=== PATIENT | female | born 1965 | race Caucasian/White ===

== ENCOUNTER 2025-05-25 23:38 | Emergency (ER) | payer OTHER ==
[2025-05-26] MEDS ORDERED: ONDANSETRON 4 MG/2 ML VIAL ONE (00:02)
[2025-05-26] MEDS ORDERED: NA CHLORIDE 0.9% 1,000 ML ONE (00:03)
[2025-05-26] MEDS ORDERED: MORPHINE 4 MG/ML SYR ONE ×2 (00:03→00:42)
[2025-05-26 00:23] LABS: Absolute Lymphocytes (CBC) 2.6 K/uL (0.7-4.9); Hematocrit 39.0 % (36.0-45.0); Hemoglobin 13.3 g/dL (12.0-15.0); MCH 30.9 pg (27.0-35.0); MCHC 34.2 g/dL (32.0-36.0); MCV 90.4 fL (80-100); MPV 7.1 fL (7.6-11.3); Nucleated RBC Absolute Count 0.0 (0-0); Nucleated Red Blood Cells % 0.1 % (0-0); RBC Red Blood Cell Count 4.32 M/uL (3.86-4.86); White Blood Count 10.10 thou/uL (4.3-10.9)
[2025-05-26 00:38] LABS: Anion Gap 12.2 mEq/L (5.0-15.0); BUN Blood Urea Nitrogen 18.0 mg/dL (7-18); Glucose Level 109.0 mg/dL (74-106)
[2025-05-26 00:39] LABS: Potassium 4.2 mEq/L (3.5-5.1)
[2025-05-26] MEDS ORDERED: FENTANYL CITR 100 MCG/2 ML ONE ×2 (00:48→03:05)
--- NOTE | 2025-05-26 03:45 | RAD REPORT ---
INDICATION: ABD PAIN COMPARISON: No existing relevant imaging studies are available TECHNIQUE: Enhanced CT of the abdomen and pelvis performed per protocol. Oral contrast was not administered. Mul tiplanar reconstructions were provided. Dose reduction techniques were utilized for this exam including automated exposure control, adjustmen ts to mA and/or kV according to patient's size, and the use of iterative reconstruction techniques. FINDINGS: LOWER CHEST: Bibasilar subsegmental atelectasis. Coronary arterial calcifications. LIVER: Unremarkable. SPLEEN: Unremarkable. PANCREAS: Unremarkable. ADRENALS: Unremarkable. KIDNEYS: Mild asymmetric fullness of the left renal collecting system without obstructing calculus id entified. 3 mm calculus within the lower pole of the right kidney. GALLBLADDER: Surgically absent. VESSELS: Mild aortic atherosclerosis without aneurysmal dilatation. BOWEL: Colonic diverticulosis without evidence of diverticulitis. Bowel otherwise unremarkable. APPENDIX: Normal. FLUID: No free fluid or abnormal fluid collection. ADENOPATHY: No pathologic adenopathy. BLADDER: Unremarkable. PELVIS: Uterus and adnexa are unremarkable. BONES: No acute bony abnormality. Grade 1 degenerative anterolisthesis of L5 on S1. SOFT TISSUES: Postsurgical changes from upper ventral abdominal wall hernia repair with a 5.9 x 1.5 c m fluid collection within the anterior abdominal wall at the site of prior hernia. Prior left mastectomy. Partially visualized right-sided breast implant. IMPRESSION: No acute abdominopelvic findings. 1. Postsurgical changes from upper ventral abdominal wall hernia repair with a 5.9 x 1.5 cm fluid c ollection within the anterior abdominal wall at the site of prior hernia, nonspecific and sterility indeterminate although could represent a postoperative seroma, hematoma or less likely abscess. 2. Mild asymmetric fullness of the left renal collecting system without obstructing calculus identi fied. 3. Nonobstructive right-sided nephrolithiasis. 4. Colonic diverticulosis without evidence of diverticulitis. Electronically signed by: Vinay Dominguez DO 05/26/2025 02:44 AM CDT NR Due to temporary technical issues with the PACS/[employer] reporting system, reports are being audelia d by the in-house radiologist without review as a courtesy to ensure prompt reporting the interpreting radiologist is fully responsible for the content of the report. Transcribed Date/Time: 05/26/2025 3:45 AM
[2025-05-26 05:40] LABS: Urine Microscopic Reflex YN NO UMIC
--- NOTE | 2025-05-26 05:51 | EDPHYS ---
Physician Documentation [facility] Name: Radha Burden Age: 60 yrs Sex: Female : 1965 Arrival Date: 05/25/2025 Time: 23:38 Bed 19 Private MD: ED Physician Isaiah Galindo HPI: 05/26 00:54 This 60 yrs old Female presents to ER via EMS with complaints of Back Pain. kb 00:54 Patient is a 60-year-old female who presents for lower back/pelvis pain that radiates kb down the back of her legs and dysuria that started this morning. States pain is gotten progressively worse so she came into the ER for evaluation. Denies fever, nausea, vomiting, injury or trauma. Patient states she has a prolapsed bladder and uterus and she felt like something popped inside.. Historical: - PMHx: 05/25 23:50 None; br2 - PSHx: 23:52 HERNIA; Cholecystectomy; br2 23:55 MASTECTOMY; br2 - Immunization history:: Adult Immunizations not up to date. - Infectious Disease History:: Denies. - Social history:: Smoking status: Patient reports the use of cigarette tobacco products, smokes one-half pack cigarettes per day, Patient/guardian denies using alcohol, street drugs. ROS: 05/26 00:54 Constitutional: As per HPI kb Exam: 00:54 Constitutional: This is a well developed, well nourished patient who is awake, alert, kb and in no acute distress. Head/Face: Normocephalic, atraumatic. ENT: Moist Mucous membranes Cardiovascular: Regular rate Respiratory: Respirations even and unlabored. No increased work of breathing. Talking in full sentences Abdomen/GI: Soft, non-tender. No distention Skin: Warm, dry with normal turgor. Normal color. Neuro: Awake and alert, GCS 15, oriented to person, place, time, and situation. 00:54 Back: pain, that is moderate, of the sacrum, ROM is painful, CVA tenderness, is absent, 00:54 Musculoskeletal/extremity: Extremities: grossly normal except: noted in the left gluteus umu and right gluteus umu: pain, tenderness, ROM: intact in all extremities, Circulation is intact in all extremities. Sensation intact. Vital Signs: 05/25 23:46 BP 125 / 79; Pulse 114; Resp 22 S; Temp 97.4(O); Pulse Ox 98% on R/A; Weight 77.11 kg; br2 Height 5 ft. 1 in. ; Pain 10; 05/26 00:15 BP 134 / 69; Pulse 62; Resp 18; Pulse Ox 99% on R/A; Pain 10/10; tb4 01:00 BP 129 / 66; Pulse 74; Resp 18; Pulse Ox 99% on R/A; Pain 9/10; tb4 02:04 BP 120 / 62; Pulse 74; Resp 19; Pulse Ox 97% on R/A; tb4 03:00 BP 115 / 65; Pulse 94; Resp 17; Pulse Ox 96% on R/A; Pain 7/10; tb4 04:10 BP 123 / 74; Pulse 77; Resp 20; Pulse Ox 100% on R/A; Pain 7/10; tb4 05:23 BP 119 / 75; Pulse 74; Resp 20; Pulse Ox 97% on R/A; Pain 7/10; tb4 05/25 23:46 Body Mass Index 32.12 (77.11 kg, 154.94 cm) br2 05/25 23:46 Pain Scale: Adult br2 05/26 00:15 Pain Scale: Adult tb4 01:00 Pain Scale: Adult tb4 03:00 Pain Scale: Adult tb4 04:10 Pain Scale: Adult tb4 05:23 Pain Scale: Adult tb4 MDM: 05/25 23:47 Medical Screening Exam initiated kb 05/25 23:53 Order name: CBC with Diff; Complete Time: 00:30 kb 05/25 23:53 Order name: BMP; Complete Time: 00:42 kb 05/25 23:53 Order name: UA Rfx Jarod Cult if indicated; Complete Time: 05:49 kb 05/25 23:53 Order name: CT Abd/Pelvis - IV Contrast Only Administered Medications: 05/26 00:10 Drug: NS 0.9% IV 1000 ml IV at 1000 ml once; to be given as a bolus over 60 minutes kt5 Route: IV; Rate: 1000 ml; Site: right forearm; 01:07 Follow up: Response: No adverse reaction; IV Status: Completed infusion tb4 00:10 Drug: Ondansetron IVP 4 mg IVP once; over 2 minutes Route: IVP; Site: right forearm; kt5 01:07 Follow up: Response: No adverse reaction tb4 00:10 Drug: morphine IVP or IV 4 mg IVP once over 4 mins Route: IVP; Infused Over: 4 mins; kt5 Site: right forearm; 01:08 Follow up: Response: No adverse reaction; Pain is unchanged, physician notified; RASS: tb4 Alert and Calm (0) 00:45 CANCELLED (Patient Refused): morphineor iv 4 mg IVP once over 4 mins kb 00:53 Drug: fentaNYL (PF) IVP 50 mcg IVP once Route: IVP; Site: right forearm; tb4 01:07 Follow up: Response: No adverse reaction; Pain is unchanged, physician notified; RASS: tb4 Alert and Calm (0) 03:48 Drug: fentaNYL (PF) IVP 100 mcg IVP once Route: IVP; Site: right antecubital; tb4 04:37 Follow up: Response: No adverse reaction; Pain is decreased; RASS: Alert and Calm (0); tb4 Patient states her pain remains a 06/16 04:36 Drug: Droperidol IVP 1.25 mg IVP once Route: IVP; Site: right antecubital; tb4 05:29 Follow up: Response: No adverse reaction tb4 Disposition: 05:50 Co-signature as Attending Physician, Isaiah Galindo MD I agree with the assessment sp4 and plan of care. I reviewed the patient's care provided by Advanced Practice Provider \T\ agree w/ the diagnosis \T\ care plan. I personally saw the pt \T\ performed a substantive portion of the visit, incldng all aspects of the (History/Exam/Medical Decision Making). 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, acute on chronic urinary bladder sp4 prolapse, Followup: sp4 - With: Private Physician - When: Today - Reason: Discharge Instructions: - Discharge Summary Sheet sp4 - Pelvic Organ Prolapse sp4 Forms: - Work release form rv1 - Patient Portal Instructions sp4 Prescriptions: - promethazine 25 mg Oral tablet - take 1 tablet ORAL route every 6 hours As needed PRN nausea; 30 tablet; sp4 Refills: 0, Product Selection Permitted Signatures: Dispatcher [employer] EDMS Sita Whitfield, Isaiah Mathew MD MD sp4 Rosa Isela Fong RN RN br2 Pat Hannah RN RN tb4 Trudi Swanson RN RN kt5 Corrections: (The following items were deleted from the chart) 05/25 23:53 23:50 PSHx: None; br2 br2 23:54 23:50 Allergies: No Known Allergies; br2 br2 23:54 23:53 Allergies: MASTECTOMY BILATERAL; br2 br2 05/26 00:45 00:32 morphine IVP or IV 4 mg IVP once over 4 mins ordered. kb kb 00:55 00:54 Patient is a 60-year-old female who presents for lower back/pelvis pain that kb radiates down the back of her legs and dysuria that started this morning. States pain is gotten progressively worse so she came into the ER for evaluation. Denies fever, nausea, vomiting, injury or trauma.. kb
--- NOTE | 2025-05-26 05:51 | ER ---
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 PT br2 STATES SHE HAS HERNIATED DISK, AND DENIES ANY RECENT INJURY. PT ALSO C/O PELVIC PAIN AND PAIN WITH URINATION. PT HAS A PROLAPSED UTERUS AND BLADDER AND HAS A MATERIAL ATTENDANT APPT TOMORROW. Coronavirus screen: Client denies travel out of the [place] in the last 14 days. Ebola Screen: Patient denies exposure to infectious person. Initial Sepsis Screen: Does the patient meet any 2 criteria? RR > 20 per min. HR > 90 bpm. Does the patient have a suspected source of infection? No. Patient's initial sepsis screen is negative. Risk Assessment: Do you want to hurt yourself or someone else? Patient reports no desire to harm self or others. Onset of symptoms was May 24, 2025. 23:46 Method Of Arrival: EMS: [facility] br2 23:46 Acuity: CATHY 3 br2 Triage Assessment: 23:50 General: Appears uncomfortable, Behavior is cooperative, anxious. Pain: Complains of br2 pain in back and pelvis Pain currently is 10 out of 10 on a pain scale. Historical: - PMHx: 23:50 None; br2 - PSHx: 23:52 HERNIA; Cholecystectomy; br2 23:55 MASTECTOMY; br2 - Immunization history:: Adult Immunizations not up to date. - Infectious Disease History:: Denies. - Social history:: Smoking status: Patient reports the use of cigarette tobacco products, smokes one-half pack cigarettes per day, Patient/guardian denies using alcohol, street drugs. Screenin/20 00:15 [facility] ED Fall Risk Assessment (Adult) History of falling in the last 3 months, tb4 including since admission No falls in past 3 months (0 pts) Confusion or Disorientation No (0 pts) Intoxicated or Sedated No (0 pts) Impaired Gait No (0 pts) Mobility Assist Device Used No (0 pt) Altered Elimination No (0 pt) Score/Fall Risk Level 0 - 2 = Low Risk Oriented to surroundings, Maintained a safe environment. Abuse screen: Denies threats or abuse. Denies injuries from another. Nutritional screening: No deficits noted. Tuberculosis screening: No symptoms or risk factors identified. Assessment: 00:04 General: Appears distressed, uncomfortable, ill, Behavior is cooperative, crying, tb4 restless. Pain: Complains of pain in generalized body pain 10/10 Pain does not radiate. Pain currently is 10 out of 10 on a pain scale. Quality of pain is described as sharp, shooting, Pain began gradually, years ago. Is continuous, Alleviated by nothing. Neuro: Level of Consciousness is awake, alert, obeys commands, Oriented to person, place, time, situation, Auditing Control Clerk are weak bilaterally Moves all extremities. Full function Gait is unsteady, Speech is normal, Facial symmetry appears normal. Respiratory: Airway is patent Trachea midline Respiratory effort is even, unlabored, Respiratory pattern is regular, symmetrical. GI: Abdomen is round Bowel sounds present X 4 quads. Reports lower abdominal pain, upper abdominal pain, Pain is 10 out of 10 on a pain scale. : Reports burning with urination, cramping. EENT:. Derm: Skin is intact, is healthy with good turgor, Skin is moist, Skin is normal. Musculoskeletal: Circulation, motion, and sensation intact. Range of motion: intact in all extremities, Reports pain in buttocks and right gluteus umu and left gluteus umu and sacrum and pelvis and back and generalized pain 10/10. 05:29 Reassessment: Patient walked to restroom with daughter, no s/s of distress noted. tb4 Vital Signs: 05/25 23:46 BP 125 / 79; Pulse 114; Resp 22 S; Temp 97.4(O); Pulse Ox 98% on R/A; Weight 77.11 kg; br2 Height 5 ft. 1 in. ; Pain 07/16; 05/26 00:15 BP 134 / 69; Pulse 62; Resp 18; Pulse Ox 99% on R/A; Pain 10/10; tb4 01:00 BP 129 / 66; Pulse 74; Resp 18; Pulse Ox 99% on R/A; Pain 9/10; tb4 02:04 BP 120 / 62; Pulse 74; Resp 19; Pulse Ox 97% on R/A; tb4 03:00 BP 115 / 65; Pulse 94; Resp 17; Pulse Ox 96% on R/A; Pain 7/10; tb4 04:10 BP 123 / 74; Pulse 77; Resp 20; Pulse Ox 100% on R/A; Pain 7/10; tb4 05:23 BP 119 / 75; Pulse 74; Resp 20; Pulse Ox 97% on R/A; Pain 7/10; tb4 05/25 23:46 Body Mass Index 32.12 (77.11 kg, 154.94 cm) br2 05/25 23:46 Pain Scale: Adult br2 05/26 00:15 Pain Scale: Adult tb4 01:00 Pain Scale: Adult tb4 03:00 Pain Scale: Adult tb4 04:10 Pain Scale: Adult tb4 05:23 Pain Scale: Adult tb4 ED Course: 05/25 23:40 Initial lab(s) drawn, by me, CT Scan. tb4 23:44 Patient arrived in ED. gm2 23:47 Sita Whitfield, CAMILA is PHCP. kb 23:47 Isaiah Galindo MD is Attending Physician. kb 23:50 Triage completed. br2 23:50 Arm band placed on. br2 05/26 00:01 CBC with Diff Sent. tb4 00:01 BMP Sent. tb4 00:03 Inserted saline lock: 20 gauge in left forearm, using aseptic technique. Flushed with kt5 10 mL NS. 00:15 Patient has correct armband on for positive identification. Bed in low position. Call tb4 light in reach. Side rails up X 1. Adult w/ patient. Client placed on continuous cardiac and pulse oximetry monitoring. NIBP monitoring applied. Pulse ox on. Door closed. Lights dimmed. Warm blanket given. 00:15 No provider procedures requiring assistance completed. tb4 01:18 CT Abd/Pelvis - IV Contrast Only In Process Unspecified. EDMS 06:11 IV discontinued, intact, bleeding controlled, No redness/swelling at site. Pressure tb4 dressing applied. 06:12 Provided Education on: Take medication as prescribed and follow up with primary care. tb4 Administered Medications: 00:10 Drug: NS 0.9% IV 1000 ml IV at 1000 ml once; to be given as a bolus over 60 minutes kt5 Route: IV; Rate: 1000 ml; Site: right forearm; 01:07 Follow up: Response: No adverse reaction; IV Status: Completed infusion tb4 00:10 Drug: Ondansetron IVP 4 mg IVP once; over 2 minutes Route: IVP; Site: right forearm; kt5 01:07 Follow up: Response: No adverse reaction tb4 00:10 Drug: morphine IVP or IV 4 mg IVP once over 4 mins Route: IVP; Infused Over: 4 mins; kt5 Site: right forearm; 01:08 Follow up: Response: No adverse reaction; Pain is unchanged, physician notified; RASS: tb4 Alert and Calm (0) 00:45 CANCELLED (Patient Refused): morphineor iv 4 mg IVP once over 4 mins kb 00:53 Drug: fentaNYL (PF) IVP 50 mcg IVP once Route: IVP; Site: right forearm; tb4 01:07 Follow up: Response: No adverse reaction; Pain is unchanged, physician notified; RASS: tb4 Alert and Calm (0) 03:48 Drug: fentaNYL (PF) IVP 100 mcg IVP once Route: IVP; Site: right antecubital; tb4 04:37 Follow up: Response: No adverse reaction; Pain is decreased; RASS: Alert and Calm (0); tb4 Patient states her pain remains a 06/16 04:36 Drug: Droperidol IVP 1.25 mg IVP once Route: IVP; Site: right antecubital; tb4 05:29 Follow up: Response: No adverse reaction tb4 Medication: 00:15 VIS not applicable for this client. tb4 Intake: Outcome: 05:51 Discharge ordered by . sp4 06:11 Discharged to home ambulatory, tb4 06:11 Condition: stable 06:11 Discharge instructions given to patient, family, Instructed on discharge instructions, follow up and referral plans. Demonstrated understanding of instructions, follow-up care, medications, Prescriptions given X 2, 06:13 Patient left the ED. tb4 Signatures: Dispatcher [employer] EDOR Sita Whitfield FNP-C FNP-Isaiah Rosales MD MD sp4 Maria C Zamora gm2 Rosa Isela Fong RN RN br2 Pat Hannah RN RN tb4 Trudi Swanson RN RN kt5 Corrections: (The following items were deleted from the chart) 05/2553 23:50 PSHx: None; br2 br2 23:50 Allergies: No Known Allergies; br2 br2 23:53 Allergies: MASTECTOMY BILATERAL; br2 br2
[2025-05-26 10:24] VITALS: TEMP 97.4
[2025-05-26 10:58] VITALS: BP 119/75; O2SAT 97
== END 2025-05-26 06:13 | disposition home or self-care (01) ==
LOC: ER 23:38
DX: N81.0 Urethrocele (principal); F17.210 Nicotine dependence, cigarettes, uncomplicated
CPT/HCPCS: 85025; 80048; 36415; 81003; 74177; Q9967; J3010 ×2; J2405; J1790; J7030